=== PATIENT | female | born 1980 | race Caucasian/White ===

== ENCOUNTER 2017-11-17 03:56 | Emergency (ER) | payer SELFPAY ==
[~2017-11-17] VITALS: Ht 152.4 cm; Wt 75.0 kg
[2017-11-17] MEDS ORDERED: METF500T4 PO (04:07)
[2017-11-17] MEDS ORDERED: LISI-167 PO (04:08)
[2017-11-17 04:46] LABS: BASOPHILS # (AUTO) 0.03 x10^3/uL (0-0.1); BASOPHILS % (AUTO) 0 % (0-1); EOSINOPHILS # (AUTO) 0.06 x10^3/uL (0-0.4); EOSINOPHILS % (AUTO) 1 % (1-7); LYMPHOCYTES # (AUTO) 1.51 x10^3/uL (1-3.4); LYMPHOCYTES % (AUTO) 19 % (22-44); MD NO; MEAN CORPUSCULAR HEMOGLOBIN 20.9 pg (27.0-34.8); MEAN CORPUSCULAR HGB CONC 32.2 g/dL (32.4-35.8); MEAN CORPUSCULAR VOLUME 64.9 fL (80-100); MEAN PLATELET VOLUME 8.1 fL (7.4-10.4); MONOCYTES # (AUTO) 0.37 x10^3/uL (0.2-0.8); MONOCYTES % (AUTO) 5 % (2-9); NEUTROPHILS # (AUTO) 6.22 x10^3/uL (1.8-6.8); NEUTROPHILS % (AUTO) 76 % (42-75); PLATELET COUNT 247 x10^3/uL (130-400); RED BLOOD COUNT 5.15 x10^6/uL (3.82-5.3); RED CELL DISTRIBUTION WIDTH 17.8 % (9.6-15.2)
[2017-11-17] MEDS ORDERED: KETOROLAC 30 MG/1 ML ONE (04:46)
[2017-11-17] MEDS ORDERED: ONDANSETRON ODT 4 MG ONE (04:46)
[2017-11-17 04:54] LABS: ALANINE AMINOTRANSFERASE 20 U/L (12-78); ALBUMIN 3.6 g/dL (3.4-5.0); ANION GAP 9 mmol/L (5-15); CALCIUM 8.3 mg/dL (8.5-10.1); CHLORIDE 103 mmol/L (98-107)
[2017-11-17 04:56] LABS: ALKALINE PHOSPHATASE 129 U/L (45-117); BILIRUBIN,TOTAL 0.4 mg/dL (0.2-1.0); TOTAL PROTEIN 7.6 g/dL (6.4-8.2)
[2017-11-17] MEDS ORDERED: MECLIZINE CHEWABLE 25 MG TAB ONE (04:57)
[2017-11-17] MEDS ORDERED: ONDANSETRON ODT 8 MG ONE (04:57)
[2017-11-17] MEDS ORDERED: ONDANSETRON ODT 8 MG PO PRN (05:00)
[2017-11-17] MEDS ORDERED: SODIUM CHLORIDE 0.9% 1,000ML IVBOLUS ONE (05:00)
[2017-11-17] MEDS ORDERED: MECLIZINE CHEWABLE 25 MG TAB PO ONE (05:00)
[2017-11-17] MEDS ORDERED: KETOROLAC 30 MG/1 ML IVPush ONE (05:00)
[2017-11-17] MEDS ORDERED: INSULIN REGULAR 100 UNITS/ML, 3ML VIAL ONE (05:40)
[2017-11-17 05:54] LABS: ACETONE, SERUM Trace (10mg/dL) mg/dL (Negative)
[2017-11-17 06:08] LABS: MICROSCOPIC INDICATED
[2017-11-17 06:10] LABS: CULTURE INDICATED? YES
[2017-11-17] MEDS ORDERED: INSULIN REGULAR 100 UNITS/ML, 3ML VIAL SQ-INSULIN ONE (07:00)
[2017-11-17] MEDS ORDERED: INSULIN REGULAR 100 UNITS/ML, 3ML VIAL SQ-INSULIN SCH (07:00)
[2017-11-17 07:35] VITALS: BP 152/74
== END 2017-11-17 07:40 | disposition home or self-care (01) ==
LOC: ED 05:46
DX: E11.65 Type 2 diabetes mellitus with hyperglycemia (principal); N30.90 Cystitis, unspecified without hematuria; I10 Essential (primary) hypertension
CPT/HCPCS: 36415; 80053; 81001; 81025; 82010; 82800; 82962; 85025; 87086; 93005; 96361; 96372; 96374; 99285; J1885; J7030; Q0162

== ENCOUNTER 2019-06-22 15:33 | Emergency (ER) | payer SELFPAY ==
[~2019-06-22] VITALS: Ht 165.1 cm; Wt 76.1 kg
[~2019-06-22 15:33] MED LIST: LISI-167 PO; METF500T17 PO
--- NOTE | 2019-06-22 16:23 | NUR ---
CALL LIGHT WITHIN REACH, AWAITING FLU SWAB.
[2019-06-22 16:37] LABS: RAPID INFLUENZA A Negative (Negative); RAPID INFLUENZA B Negative (Negative)
--- NOTE | 2019-06-22 17:08 | NUR ---
BREAK RN FOR PRIMARY RN BRAYDEN. DR. FARNSWORTH AT BEDSIDE DISCUSSING DISCHARGE POC AND INSTRUCTIONS WITH PT. AWAITING CHART AND DISCHARGE PAPERS FROM [facility].
--- NOTE | 2019-06-22 17:23 | NUR ---
BEDSIDE REPORT AND CARE BACK TO PRIMARY RN BRAYDEN WHO WILL DISCHARGE PT. CHART RECEIVED FROM ERP AT THIS TIME.
[2019-06-22 17:26] VITALS: BP 123/62
== END 2019-06-22 17:30 | disposition home or self-care (01) ==
LOC: ED 17:24
DX: J98.01 Acute bronchospasm (principal); J06.9 Acute upper respiratory infection, unspecified; I10 Essential (primary) hypertension; E11.9 Type 2 diabetes mellitus without complications
CPT/HCPCS: 87400; 93005; 99284